=== PATIENT | female | born 1945 | race Caucasian/White ===

== ENCOUNTER → 2020-09-09 | Outpatient (CLI) | payer MEDICARE ==
[~2020-09-09] MED LIST: AMOX1TAB12 PO; APIX5TAB PO; ATOR20TA37 PO; BUPR75TA6 PO; CHOL5000 PO; CLON0.1T22 PO; DOXY100T PO; FLUO20TA25 PO; GABA300C10 PO; HYDR-3245 PO; LOSA25TA25 PO; MELO15TA24 PO; METH750T2 PO; PANT40TA6 PO; PARO20TA4 PO; TIZA2CAP PO; VALS1TAB29 PO; VERA120C2 PO; hydrocodone PO
[2020-09-09 11:15] LABS: BASOPHILS % (AUTO) 1 % (0-1); EOSINOPHILS % (AUTO) 1 % (1-7); LYMPHOCYTES % (AUTO) 21 % (22-44); MEAN CORPUSCULAR HEMOGLOBIN 29.6 pg (27.0-34.8); MEAN CORPUSCULAR HGB CONC 33.6 g/dL (32.4-35.8); MEAN PLATELET VOLUME 7.4 fL (7.4-10.4); MONOCYTES % (AUTO) 12 % (2-9); NEUTROPHILS % (AUTO) 65 % (42-75); PLATELET COUNT 260 x10^3/uL (130-400); RED BLOOD COUNT 4.82 x10^6/uL (3.82-5.3); RED CELL DISTRIBUTION WIDTH 12.6 % (9.6-15.2)
[2020-09-09 11:18] LABS: MD NO
[2020-09-09 11:41] LABS: ALANINE AMINOTRANSFERASE 21 U/L (12-78); ALBUMIN 4.2 g/dL (3.4-5.0); ANION GAP 8 mmol/L (5-15); CALCIUM 9.1 mg/dL (8.5-10.1); CHLORIDE 101 mmol/L (98-107); CHOLESTEROL, TOTAL 194 mg/dL (140-239); CREATININE 1.03 mg/dL (0.55-1.02)
[2020-09-09 11:50] LABS: ALKALINE PHOSPHATASE 71 U/L (45-117); BILIRUBIN,TOTAL 0.7 mg/dL (0.2-1.0); CHOL/HDL RATIO 2.1; FREE T4 (FREE THYROXINE) 1.09 ng/dL (0.76-1.46); HDL CHOL % 48 % (28-40); HDL CHOLESTEROL (DIRECT) 94 mg/dL (40-60); LDL CHOLESTEROL,CALCULATED 87 mg/dL (54-169); LDL/HDL RATIO 0.9 (0.5-3.0); TOTAL PROTEIN 7.4 g/dL (6.4-8.2); TRIGLYCERIDES 63 mg/dL (50-200); VLDL CHOLESTEROL 13 mg/dL (0-25)
== END | disposition home or self-care (01) ==
LOC: LAB 10:56
PROVIDERS: ATTEND Nurse Practitioner Primary Care
DX: I10 Essential (primary) hypertension (principal); E78.5 Hyperlipidemia, unspecified; F32.9 Major depressive disorder, single episode, unspecified
CPT/HCPCS: 36415; 80053; 80061; 84439; 84443; 84481; 85025

== ENCOUNTER → 2020-09-12 | Outpatient (CLI) | payer MEDICARE | END | disposition home or self-care (01) | LOC: CFH 12:11 | PROVIDERS: ATTEND Internal Medicine Cardiovascular Disease | DX: R00.2 Palpitations (principal); I10 Essential (primary) hypertension; R06.02 Shortness of breath | CPT/HCPCS: 78452; A9502 ==

== ENCOUNTER 2021-03-30 10:26 | Emergency (ER) | payer MEDICARE ==
[~2021-03-30] VITALS: Ht 167.6 cm; Wt 73.7 kg
[~2021-03-30 10:26] MED LIST changes: -HYDR-3245 PO; +HYDR1TAB53 PO; +METH-640 PO; -METH750T2 PO
[2021-03-30 10:31] VITALS: BP 125/74
--- NOTE | 2021-03-30 11:07 | NUR ---
WARM BLANKET PROVIDED, CALL LIGHT WITHIN REACH.
--- NOTE | 2021-03-30 12:10 | NUR ---
CT RESULTS BACK, PT FOR RECHECK.
== END 2021-03-30 13:02 | disposition home or self-care (01) ==
LOC: ED 12:41
DX: S09.90XA Unspecified injury of head, initial encounter (principal); H05.231 Hemorrhage of right orbit; W01.0XXA Fall on same level from slipping, tripping and stumbling without subsequent striking against object, initial encounter; Y93.89 Activity, other specified; Y92.410 Unspecified street and highway as the place of occurrence of the external cause; Y99.8 Other external cause status
CPT/HCPCS: 70450; 70486; 99285

== ENCOUNTER 2021-04-10 07:00 | Day surgery (SDC) | payer MEDICARE ==
[~2021-04-10] VITALS: Ht 167.6 cm; Wt 72.3 kg
[2021-04-10 07:47] VITALS: BP 162/93
[2021-04-10] MEDS ORDERED: SODIUM CHLORIDE 0.9% 1,000 ML IV SCH (10:00)
[2021-04-10] MEDS ORDERED: OMNIPAQUE 300 MG/ML, 10ML VIAL ONE (10:21)
== END 2021-04-10 13:45 | disposition home or self-care (01) ==
LOC: RAD 07:00 → EDSTATUS 08:30 → RAD 13:45
PROVIDERS: ATTEND Physician Assistant Surgical
DX: M50.11 Cervical disc disorder with radiculopathy, high cervical region (principal); I10 Essential (primary) hypertension
CPT/HCPCS: 62284; 72050; 72126; Q9967; 72240